=== PATIENT | male | born 1945 | race Caucasian/White ===

== ENCOUNTER → 2020-05-09 | Outpatient (CLI) | payer MEDICARE ==
[~2020-05-09] MED LIST: APIX5TAB PO; FERR324T PO; HYDR-4457 PO; HYDR12.54 PO; LEVO50TA11 PO; LISI40TA9 PO
== END | disposition home or self-care (01) ==
LOC: RAH 11:32
PROVIDERS: ATTEND Physical Medicine & Rehabilitation
DX: M47.812 Spondylosis without myelopathy or radiculopathy, cervical region (principal)
CPT/HCPCS: 72052

== ENCOUNTER → 2020-05-30 | Outpatient (CLI) | payer MEDICARE | END | disposition home or self-care (01) | LOC: RAH 08:47 | PROVIDERS: ATTEND Physical Medicine & Rehabilitation | DX: M50.20 Other cervical disc displacement, unspecified cervical region (principal); M47.812 Spondylosis without myelopathy or radiculopathy, cervical region; G56.03 Carpal tunnel syndrome, bilateral upper limbs | CPT/HCPCS: 72141 ==

== ENCOUNTER → 2021-04-14 | Outpatient (CLI) | payer MEDICARE | END | disposition home or self-care (01) | LOC: RAH 08:46 | PROVIDERS: ATTEND Internal Medicine | DX: S32.010S Wedge compression fracture of first lumbar vertebra, sequela (principal); M43.8X5 Other specified deforming dorsopathies, thoracolumbar region; M47.817 Spondylosis without myelopathy or radiculopathy, lumbosacral region; X58.XXXS Exposure to other specified factors, sequela | CPT/HCPCS: 72100 ==

== ENCOUNTER 2021-06-09 11:00 | Observation (INO) | payer MEDICARE ==
[~2021-06-09] VITALS: Ht 177.8 cm; Wt 84.3 kg
[~2021-06-09 11:00] MED LIST changes: -APIX5TAB PO; -FERR324T PO; -HYDR-4457 PO; -LEVO50TA11 PO
[2021-06-09 11:01] LABS: BASOPHILS % (AUTO) 0.4 % (0.0-5.0); EOSINOPHILS % (AUTO) 0.8 % (0.0-8.0); HEMATOCRIT 37.8 % (42-54); LYMPHOCYTES % (AUTO) 22.3 % (21.0-51.0); MEAN CORPUSCULAR HEMOGLOBIN 32.7 pg (27.0-33.0); MEAN CORPUSCULAR HGB CONC 33.9 g/dL (32.0-36.0); MEAN CORPUSCULAR VOLUME 96.4 fL (79-99); MONOCYTES % (AUTO) 6.2 % (3.0-13.0); NEUTROPHILS % (AUTO) 69.9 % (40.0-77.0); PLATELET COUNT (AUTO) 289 K/uL (130-400); RED BLOOD CELL COUNT(AUTO) 3.92 MIL/uL (4.50-6.20); WHITE BLOOD COUNT (AUTO) 7.7 K/uL (4.8-10.8)
[2021-06-09 11:07] LABS: CREATININE 1.5 mg/dL (0.5-1.5); POTASSIUM 4.4 mmol/L (3.5-5.1)
[2021-06-10 08:34] VITALS: BP 145/80
[2021-06-10] MEDS ORDERED: PRED1TAB PO (09:01)
[2021-06-10] MEDS ORDERED: AEC81 PO (09:01)
[2021-06-10] MEDS ORDERED: ALEN70TA80 PO (09:01)
[2021-06-10] MEDS ORDERED: LEVO75TA10 PO (09:01)
[2021-06-11] VITALS (25 sets, daily range): BP systolic 127–178; BP diastolic 54–97
[2021-06-11] MEDS ORDERED: CEFAZOLIN SODIUM 2 GM VIAL IV SCH (06:00)
[2021-06-11] MEDS ORDERED: CEFAZOLIN SODIUM 1 GM VIAL ONE ×2 (06:23→06:44)
[2021-06-11] MEDS ORDERED: LACTATED RINGERS 1000ML 1,000 ML IV ONE (06:23)
[2021-06-11] MEDS ORDERED: BUPIVACAINE/EPI/PF 0.25% 30ML VIAL IJ ONE (06:44)
[2021-06-11] MEDS ORDERED: MORPHINE PF 100MG/10ML AMP IV ONE (06:45)
[2021-06-11] MEDS ORDERED: THROMBIN-JMI 20000 UNIT KIT TP ONE (06:45)
[2021-06-11] MEDS ORDERED: LIDOCAINE PF 100MG/5ML (2%) SYRINGE 5ML ONE ×2 (06:49→09:58)
[2021-06-11] MEDS ORDERED: SUCCINYLCHOLINE CHLORIDE 20 MG/ML 10 ML VIAL ONE (06:49)
[2021-06-11] MEDS ORDERED: NEOSTIGMINE 5MG/5ML SYR IV ONE (06:50)
[2021-06-11] MEDS ORDERED: PROPOFOL 10 MG/ML 20ML VIAL IV ONE (06:50)
[2021-06-11] MEDS ORDERED: MIDAZOLAM HCL 1 MG/ML 2ML VIAL ONE (06:50)
[2021-06-11] MEDS ORDERED: DEXAMETHASONE SOD PHOSPHATE 10MG/ML 1ML VIAL ONE ×2 (06:50→07:30)
[2021-06-11] MEDS ORDERED: ONDANSETRON 4MG INJ ONE (06:50)
[2021-06-11] MEDS ORDERED: GLYCOPYRROLATE 1 MG/5 ML SYRINGE ONE (06:50)
[2021-06-11] MEDS ORDERED: ROCURONIUM 10MG/1ML SYR 10 MG/ML ML ONE ×2 (06:51→08:13)
[2021-06-11] MEDS ORDERED: FENTANYL CITRATE PF 50 MCG/1 ML 2ML VIAL ONE (06:51)
[2021-06-11] MEDS ORDERED: PHENYLEPHRINE HCL 10 MG/ML 1ML VIAL IV ONE (07:50)
[2021-06-11] MEDS ORDERED: ARTIFICIAL TEARS 3.5 GM OINTMENT ONE (08:26)
[2021-06-11] MEDS ORDERED: MEPERIDINE-PF 25 MG/ML SYG ONE (09:50)
[2021-06-11] MEDS: LACTATED RINGERS 1000ML 1,000 ML IV SCH ×2 (10:30→22:41)
[2021-06-11] MEDS ORDERED: HYDROCODONE/ACETAMINOPHEN 5/325 MG TAB PO PRN (10:30)
[2021-06-11] MEDS ORDERED: 0.9%NACL 10ML VIAL IVP PRN (10:30)
[2021-06-11] MEDS ORDERED: MORPHINE 2 MG SYG IVP PRN (10:30)
[2021-06-11] MEDS: DEXAMETHASONE SOD PHOSPHATE 4 MG/ML 1ML VIAL IVP SCH ×3 (12:14→22:44)
[2021-06-11] MEDS: CEFAZOLIN SODIUM 1 GM VIAL IVP SCH ×2 (16:24→18:30)
[2021-06-11] MEDS: PROMETHAZINE HCL 25 MG/ML 1ML AMPULE IM PRN (16:54)
[2021-06-12] MEDS: CEFAZOLIN SODIUM 1 GM VIAL IVP SCH ×2 (01:31→08:21)
[2021-06-12] MEDS: DEXAMETHASONE SOD PHOSPHATE 4 MG/ML 1ML VIAL IVP SCH ×2 (04:42→09:14)
[2021-06-12] MEDS ORDERED: LEVOTHYROXINE 75 MCG TABLET PO SCH (07:30)
[2021-06-12 08:00] VITALS: BP 137/69
[2021-06-12] MEDS ORDERED: HYDROCHLOROTHIAZIDE 25 MG TABLET PO SCH (09:00)
[2021-06-12] MEDS ORDERED: LISINOPRIL 40 MG TABLET PO SCH (09:00)
[2021-06-12] MEDS ORDERED: PREDNISONE 1 MG TAB PO SCH (09:00)
[2021-06-12] MEDS ORDERED: ASPIRIN 81 MG EC TAB PO SCH (09:00)
[2021-06-12] MEDS: PROMETHAZINE HCL 25 MG/ML 1ML AMPULE IM PRN (11:15)
[2021-06-18] MEDS ORDERED: ALENDRONATE SODIUM 35 MG TAB PO SCH (09:00)
== END 2021-06-12 16:52 | disposition home or self-care (01) ==
LOC: EDSTATUS 11:00 → DAHIP 06-11 05:56 → 4AH 06-11 11:45
PROVIDERS: ADMIT Neurological Surgery; ATTEND Neurological Surgery
DX: M48.061 Spinal stenosis, lumbar region without neurogenic claudication (principal); Z20.822 Contact with and (suspected) exposure to COVID-19; I48.91 Unspecified atrial fibrillation; R00.1 Bradycardia, unspecified; E03.9 Hypothyroidism, unspecified; M35.3 Polymyalgia rheumatica; I44.7 Left bundle-branch block, unspecified; M48.54XA Collapsed vertebra, not elsewhere classified, thoracic region, initial encounter for fracture; Z79.01 Long term (current) use of anticoagulants; Z79.82 Long term (current) use of aspirin; Z96.643 Presence of artificial hip joint, bilateral; Z79.899 Other long term (current) drug therapy; Z98.890 Other specified postprocedural states
CPT/HCPCS: 36415; 63047; 63048 ×2; 71045; 72020; 80048; 85025; 87635; 96372 ×2; 96374; 96375 ×2; 96376 ×2; A4215; A4221; A4222; A4223; A4344; A4600; A4649 ×3; A4663; A6260; G0378 ×29; J0330; J0690 ×3; J1100 ×9; J2001 ×2; J2175; J2250; J2274; J2370; J2405; J2550 ×2; J2704; J2710; J3010; J3490 ×2; J7120 ×4; J7512

== ENCOUNTER 2022-06-01 14:27 | Emergency (ER) | payer OTHER, MEDICARE ==
[~2022-06-01] VITALS: Ht 177.8 cm; Wt 78.0 kg
[~2022-06-01 14:27] MED LIST changes: +AEC81 PO; +ALEN70TA80 PO; +LEVO75TA10 PO; +PRED1TAB PO
[2022-06-01 16:33] LABS: BASOPHILS % (AUTO) 0.7 % (0.0-5.0); EOSINOPHILS % (AUTO) 0.9 % (0.0-8.0); HEMATOCRIT 36.4 % (42-54); LYMPHOCYTES % (AUTO) 27.1 % (21.0-51.0); MEAN CORPUSCULAR HEMOGLOBIN 31.9 pg (27.0-33.0); MEAN CORPUSCULAR HGB CONC 34.3 g/dL (32.0-36.0); MEAN CORPUSCULAR VOLUME 92.9 fL (79-99); MONOCYTES % (AUTO) 8.5 % (3.0-13.0); NEUTROPHILS % (AUTO) 62.5 % (40.0-77.0); PLATELET COUNT (AUTO) 280 K/uL (130-400); RED BLOOD CELL COUNT(AUTO) 3.92 MIL/uL (4.50-6.20); RED CELL DISTRIBUTION WIDTH 13.1 % (11.0-15.5); WHITE BLOOD COUNT (AUTO) 7.6 K/uL (4.8-10.8)
[2022-06-01 16:42] LABS: CREATININE 2.1 mg/dL (0.5-1.5); POTASSIUM 4.3 mmol/L (3.5-5.1)
[2022-06-01 16:46] LABS: ALBUMIN 3.9 g/dL (3.5-5.0); TOTAL PROTEIN, SERUM 7.8 g/dL (6.0-8.3)
[2022-06-01 21:41] VITALS: BP 138/72
== END 2022-06-01 21:45 | disposition home or self-care (01) ==
LOC: EDH 14:27
DX: K92.1 Melena (principal); I10 Essential (primary) hypertension; E78.00 Pure hypercholesterolemia, unspecified; Z79.82 Long term (current) use of aspirin; Z79.899 Other long term (current) drug therapy
CPT/HCPCS: 36415; 74176; 80053; 82270; 85025